=== PATIENT | female | born 1980 | race Caucasian/White ===

== ENCOUNTER 2023-03-03 09:58 | Emergency (ER) | payer MEDICAID ==
[2023-03-03 11:15] LABS: HEMATOCRIT 41.6 % (34.2-48.2); HEMOGLOBIN 13.9 g/dL (11.4-15.5); MEAN CORPUSCULAR HEMOGLOBIN 31.7 pg (23.9-33.9); MEAN CORPUSCULAR HGB CONC 33.3 g/dL (31.9-34.8); MEAN PLATELET VOLUME 7.5 fL (7.1-12.4); PLATELET COUNT,PLT 305 x10(3)uL (151-488); RED BLOOD CELL COUNT 4.38 x10(6)uL (3.60-5.20); RED CELL DISTRIBUTION WIDTH 12.7 % (12.3-16.5)
[2023-03-03 11:16] LABS: BILIRUBIN,URINE SMALL (NEGATIVE); GLUCOSE,URINE NORMAL (NORMAL); KETONES,URINE NEGATIVE (NEGATIVE); LEUKOCYTE ESTERASE,URINE NEGATIVE (NEGATIVE); NITRITE,URINE NEGATIVE (NEGATIVE); OCCULT BLOOD,URINE NEGATIVE (NEGATIVE); PROTEIN,URINE NEGATIVE (NEGATIVE); UROBILINOGEN,URINE NORMAL (NEGATIVE)
[2023-03-03 11:16] LABS: BLOOD UREA NITROGEN,BUN 17 mg/dL (7-18); BUN/CREATININE RATIO 24.3 (9-20); CALCIUM 9.8 mg/dL (8.6-10.2); CARBON DIOXIDE,CO2 32 mmol/L (21-32); CHLORIDE,CL 100 mmol/L (100-110); CREATININE 0.7 mg/dL (0.55-1.02); EST CRCL DRUG DOSING (CG) 82.47 mL/min; ESTIMATED GFR 111 mL/min (>60); GLUCOSE RANDOM 100 mg/dL (80-116); POTASSIUM,K 4.2 mmol/L (3.5-5.3); SODIUM,NA 136 mmol/L (135-145)
[2023-03-03 11:21] LABS: A/G RATIO 1.5; ALANINE AMINOTRANSFERASE,ALT 66 U/L (12-36); ALBUMIN 4.2 g/dL (3.5-5.2); ALKALINE PHOSPHATASE 59 IU/L (56-112); ASPARTATE AMNIOTRANSFERASE,AST 70 IU/L (5-25); BILIRUBIN TOTAL 0.4 mg/dL (0.1-1.3); MAGNESIUM 1.8 mg/dL (1.8-2.5); PROTEIN TOTAL,TP 7.1 g/dL (6.0-8.0)
[2023-03-03 11:35] LABS: C-REACTIVE PROTEIN < 0.50 mg/dL (<0.50)
[2023-03-03 11:44] LABS: BAND PERCENT MAN 1 % (0-6); LYMPHOCYTES PERCENT MAN 8 % (13-37); MONOCYTES PERCENT MAN 4 % (4-12); SEG NEUTROPHILS PERCENT MAN 87 % (46-82)
[2023-03-03] MEDS ORDERED: Sodium Chloride 0.9% 10 ML Syringe FLUSH PRN (11:50)
[2023-03-03 11:51] LABS: APPEARANCE,URINE SLIGHTLY CLOUDY (CLEAR); BACTERIA,URINE FEW (NS); COLOR,URINE YELLOW (YELLOW); SQUAMOUS EPITHELIAL CELLS,UR FEW (NS,R,O); WBC,URINE 0-5 (0-5)
[2023-03-03 12:18] LABS: LIPASE 614 U/L (16-77)
[2023-03-03] MEDS: Ondansetron 4 MG/2 ML SDV IVPUSH ONE (12:25)
[2023-03-03] MEDS: Sodium Chloride 0.9% 500 ML IV ONE (12:43)
[2023-03-03] MEDS ORDERED: Naloxone 0.4 MG/ML SDV IVPUSH PRN (12:51)
[2023-03-03] MEDS: Iopamidol 755 Mg/ML 100 ML Bottle IV SCH (12:56)
[2023-03-03] MEDS: HYDROmorphone 2 MG/ML SDV IVPUSH ONE ×2 (13:00→13:40)
[2023-03-03] MEDS: cefTRIAXone 2 GM Vial IVPUSH ONE (15:52)
== END 2023-03-03 17:10 ==
LOC: FB.ED 09:58
DX: K85.10 Biliary acute pancreatitis without necrosis or infection (principal); F17.210 Nicotine dependence, cigarettes, uncomplicated
CPT/HCPCS: 36415; 74177; 80053; 81001; 81025; 83690; 83735; 85025; 86140; 96361; 96374; 96375; 96376; 99285-25; J0696; J1170; J2405; J7040; Q9967